=== PATIENT | female | born 1955 | race Caucasian/White ===

== ENCOUNTER 2023-05-07 06:34 | Day surgery (SDC) | payer MEDICARE, BC ==
[2023-05-07] MEDS ORDERED: fentaNYL 100 MCG/2 ML SDV IV ONE (06:35)
[2023-05-07] MEDS ORDERED: Midazolam 1 MG/ML 2 ML SDV IV ONE (06:35)
[2023-05-07] MEDS ORDERED: Midazolam 1 MG/ML 2 ML SDV ONE (06:55)
[2023-05-07] MEDS ORDERED: fentaNYL 100 MCG/2 ML SDV ONE (06:56)
[2023-05-07] MEDS: Dextrose 5%-0.45% NaCl 1,000 ML IV SCH (07:19)
[2023-05-07] MEDS: fentaNYL 100 MCG/2 ML SDV IV ONE ×2 (07:40→07:41)
[2023-05-07] MEDS: Midazolam 1 MG/ML 2 ML SDV IV ONE ×2 (07:41→07:42)
[2023-05-07 12:07] VITALS: BP 116/61; PULSE 50
[2023-05-08] MEDS ORDERED: Dextrose 5%-0.45% NaCl 1,000 ML IV SCH (06:00)
== END 2023-05-07 09:45 | disposition home or self-care (01) ==
LOC: DL.ENDO 06:34
PROVIDERS: ATTEND Internal Medicine Gastroenterology
DX: K29.50 Unspecified chronic gastritis without bleeding (principal); R13.10 Dysphagia, unspecified; J44.9 Chronic obstructive pulmonary disease, unspecified; N18.9 Chronic kidney disease, unspecified; Z88.2 Allergy status to sulfonamides
CPT/HCPCS: 43239; 87077; 88305; J2250; J3010; J7042